=== PATIENT | male | born 1965 | race Caucasian/White ===

== ENCOUNTER 2020-07-19 09:33 | Outpatient (REF) | payer OTHER, SELFPAY ==
[2020-07-19 11:39] LABS: Hematocrit 43.8 % (42-52); Hemoglobin 13.8 g/dl (14.0-18.0); Mean Corpuscular HGB Conc 31.5 g/dl (31.0-36.0); Mean Corpuscular Hemoglobin 26.8 pg (27.0-33.0); Mean Corpuscular Volume 85.2 fL (80-98); Mean Platelet Volume 10.4 fL (9.4-12.4); Platelet Count 262 X10*3/uL (160-400); Red Blood Count 5.14 X10*6/uL (4.60-5.80); Red Cell Distribution Width 13.7 % (11.0-16.0); White Blood Count 5.8 X10*3/uL (4.8-10.8)
[2020-07-19 11:54] LABS: Glucose Urine UA NEG (NEG); Leukocyte Esterase Urine NEG (NEG); Nitrite Urine NEG (NEG); PH 5.5 (5.0-8.0); Specific Gravity - Urine >= 1.030 (1.005-1.025); Urine Blood NEG (NEG); Urine Ketones NEG (NEG); Urine Protein NEG (NEG-TRACE)
[2020-07-19 11:56] LABS: Appearance Urine CLOUDY; Color Urine YELLOW
[2020-07-19 12:05] LABS: Alanine Aminotransferase 18 U/L (0-40); Albumin Level 4.2 g/dL (3.5-5.0); Alkaline Phosphatase 79 U/L (39-117); Anion Gap 10 (12-20); Aspartate Amino Transferase 17 U/L (5-37); Bilirubin Total 0.5 mg/dL (0.0-1.0); Blood Urea Nitrogen 11 mg/dL (9-16); Calcium 8.6 mg/dL (8.4-10.2); Carbon Dioxide 27 mmol/L (22-29); Chloride 109 mmol/L (96-108); Cholesterol 173 mg/dL; Estimated Glomerular Filt Rate > 60; Glucose Fasting 99 mg/dL (60-99); HDL Cholesterol 44 mg/dL; LDL Cholesterol Calculated 121 mg/dl; Potassium 4.3 mmol/L (3.3-5.1); Sodium 142 mmol/L (135-145); Total Protein 6.7 g/dL (6.5-8.0); Triglycerides 42 mg/dL
[2020-07-19 14:57] LABS: Amorphous Sediment Urine 2+ /LPF; Calcium Oxalate Crystals Urine TRACE /LPF; RBC Urine 0 /HPF (0); WBC Urine 0 /HPF (0-4)
== END 2020-07-19 09:34 | disposition home or self-care (01) ==
LOC: HO.HMGCLDS 09:33
PROVIDERS: PCP Internal Medicine; Visit Provider Internal Medicine
DX: I10 Essential (primary) hypertension (principal)
CPT/HCPCS: 36415; 80053; 80061; 81001; 85027

== ENCOUNTER → 2020-10-15 09:10 | Outpatient (BNVA) | payer OTHER, SELFPAY | PROVIDERS: PCP Internal Medicine; Referring Provider Internal Medicine; Visit Provider Internal Medicine Gastroenterology ==

== ENCOUNTER 2022-08-17 11:36 | Outpatient (REF) | payer OTHER, SELFPAY ==
[2022-08-17 13:58] LABS: MANUAL DIFF FLAG NO
[2022-08-17 14:09] LABS: Basophils Percent Auto 0.4 % (0-2); Eosinophils Percent Auto 0.5 % (0-4); Hematocrit 45.8 % (42.0-52.0); Hemoglobin 14.7 g/dl (14.0-18.0); Imm Gran Abs Auto 0.03 X10*3/uL (0.00-0.03); Imm Gran Pct Auto 0.4 % (0.0-0.4); Lymphocytes Percent Auto 25.1 % (20-40); Mean Corpuscular HGB Conc 32.1 g/dl (31.0-36.0); Mean Corpuscular Hemoglobin 26.8 pg (27.0-33.0); Mean Corpuscular Volume 83.4 fL (80.0-98.0); Mean Platelet Volume 10.1 fL (9.4-12.4); Monocytes Absolute Auto 0.7 X10*3/uL (0.1-1.2); Monocytes Percent Auto 8.4 % (2-11); Neutrophils Absolute Auto 5.1 x10*3/uL (2.0-8.3); Neutrophils Percent Auto 65.2 % (45-73); Platelet Count 280 X10*3/uL (160-400); Red Blood Count 5.49 X10*6/uL (4.60-5.80); White Blood Count 7.8 X10*3/uL (4.8-10.8)
[2022-08-17 14:35] LABS: Alanine Aminotransferase 23 U/L (0-40); Albumin Level 4.3 g/dL (3.5-5.0); Alkaline Phosphatase 74 U/L (39-117); Anion Gap 12 (12-20); Aspartate Amino Transferase 20 U/L (5-37); Bilirubin Total 0.6 mg/dL (0.0-1.0); Blood Urea Nitrogen 11 mg/dL (9-16); Calcium 9.2 mg/dL (8.4-10.2); Carbon Dioxide 26 mmol/L (22-29); Chloride 110 mmol/L (96-108); Cholesterol 192 mg/dL; Estimated Glomerular Filt Rate > 60; Glucose Fasting 93 mg/dL (60-99); HDL Cholesterol 50 mg/dL; LDL Cholesterol Calculated 132 mg/dl; Potassium 4.2 mmol/L (3.3-5.1); Sodium 144 mmol/L (135-145); Total Protein 6.7 g/dL (6.5-8.0); Triglycerides 51 mg/dL
[2022-08-17 14:45] LABS: PSA,Total (Free>4and<10) 1.69 ng/mL (0.00-4.00)
== END 2022-08-17 11:37 | disposition home or self-care (01) ==
LOC: HO.HMGCLDS 11:36
PROVIDERS: PCP Internal Medicine; Visit Provider Internal Medicine
DX: Z00.00 Encounter for general adult medical examination without abnormal findings (principal); Z12.5 Encounter for screening for malignant neoplasm of prostate; I10 Essential (primary) hypertension
CPT/HCPCS: 36415; 80053; 80061; 84153; 85025

== ENCOUNTER 2023-08-21 09:17 | Outpatient (REF) | payer OTHER, SELFPAY ==
[2023-08-21 11:05] LABS: MANUAL DIFF FLAG NO
[2023-08-21 11:15] LABS: Basophils Percent Auto 0.7 % (0-2); Eosinophils Absolute Auto 0.2 X10*3/uL (0.0-0.4); Eosinophils Percent Auto 4.1 % (0-4); Hematocrit 44.6 % (42.0-52.0); Hemoglobin 14.1 g/dl (14.0-18.0); Imm Gran Abs Auto 0.01 X10*3/uL (0.00-0.03); Imm Gran Pct Auto 0.2 % (0.0-0.4); Lymphocytes Absolute Auto 2.2 X10*3/uL (1.2-4.9); Mean Corpuscular HGB Conc 31.6 g/dl (31.0-36.0); Mean Corpuscular Hemoglobin 25.7 pg (27.0-33.0); Mean Corpuscular Volume 81.2 fL (80.0-98.0); Mean Platelet Volume 9.9 fL (9.4-12.4); Monocytes Absolute Auto 0.6 X10*3/uL (0.1-1.2); Monocytes Percent Auto 10.4 % (2-11); Neutrophils Absolute Auto 2.5 x10*3/uL (2.0-8.3); Neutrophils Percent Auto 45.6 % (45-73); Platelet Count 287 X10*3/uL (160-400); Red Blood Count 5.49 X10*6/uL (4.60-5.80); Red Cell Distribution Width 14.7 % (11.0-16.0); White Blood Count 5.6 X10*3/uL (4.8-10.8)
[2023-08-21 11:50] LABS: PSA,Total (Free>4and<10) 1.59 ng/mL (0.00-4.00)
[2023-08-21 11:58] LABS: Alanine Aminotransferase 45 U/L (0-40); Albumin Level 4.2 g/dL (3.5-5.0); Alkaline Phosphatase 75 U/L (39-117); Anion Gap 12 (12-20); Aspartate Amino Transferase 29 U/L (5-37); Bilirubin Total 0.5 mg/dL (0.0-1.0); Blood Urea Nitrogen 11 mg/dL (9-16); Calcium 9.7 mg/dL (8.4-10.2); Carbon Dioxide 26 mmol/L (22-29); Chloride 108 mmol/L (96-108); Cholesterol 184 mg/dL (<200); Estimated Glomerular Filt Rate > 60; Glucose Fasting 97 mg/dL (60-99); HDL Cholesterol 47 mg/dL (>40); LDL Cholesterol Calculated 126 mg/dL (<100); Potassium 4.9 mmol/L (3.3-5.1); Sodium 141 mmol/L (135-145); Total Protein 7.2 g/dL (6.5-8.0); Triglycerides 58 mg/dL (<150)
== END 2023-08-21 09:18 | disposition home or self-care (01) ==
LOC: HO.HMGCLDS 09:17
PROVIDERS: PCP Internal Medicine; Visit Provider Internal Medicine
DX: Z00.00 Encounter for general adult medical examination without abnormal findings (principal); I10 Essential (primary) hypertension; Z12.5 Encounter for screening for malignant neoplasm of prostate
CPT/HCPCS: 36415; 80053; 80061; 84153; 85025

== ENCOUNTER 2023-08-31 12:52 | Outpatient (AMB) | payer OTHER, SELFPAY ==
--- NOTE | 2023-08-31 13:22 | A.OFFPC_ITS ---
Vital Signs 08/31/23 13:23 Height 5 ft 5 in Weight 163 lb BMI 27.1 BP 118/88 Blood Pressure Location Lt brachial Position Sitting Pulse 74 Pulse Source Pulse Oximeter Pulse Oximetry (%) 97 Oxygen Delivery Method Room Air Intake Visit Reasons: PE Intake Note: Pt is here today for PE. Pt states that he needs a refill on hi BP med. Allergies No Known Allergies Allergy (Verified 08/31/23 13:36) Medication List - Last Reconciled 08/31/23 by Sunni Ramirez MD lisinopril 20 mg PO DAILY Tobacco use date assessed: 08/31/23 Dental Screening Dental Screen Date: 08/31/23 Did you have a dental visit in the last 12 months?: No Did you have a dental problem in the last 6 months where you did not have access to dental care?: No Was dental information given to patient?: Patient declined HPI PE HPI Details Patient presents for physical [facility] Medical History Annual physical exam HTN (hypertension) Amputation of right hand Surgical History No pertinent past surgical history Family History Father No problems noted. Mother Lymphoma Social History Housing: House Alcohol intake: never Patient Tobacco Use Status: Never used Tobacco e-Cigarette/Vaping Use: Never Used service: No Current occupational status: employed Cognitive needs: No Hearing needs: No Vision needs: No Questionnaire PHQ-9 Over the last 2 weeks, how often have you been bothered by any of the following problems? 1. Little interest or pleasure in doing things: not at all 2. Feeling down, depressed, or hopeless: not at all 3. Trouble falling or staying asleep, or sleeping too much: not at all 4. Feeling tired or having little energy: not at all 5. Poor appetite or overeating: not at all 6. Feeling bad about yourself - or that you are a failure or have let yourself or your family down: not at all 7. Trouble concentrating on things, such as reading the newspaper or watching television: not at all 8. Moving or speaking so slowly that other people could have noticed. Or the opposite - being so fidgety or restless that you have been moving around a lot more than usual: not at all 9. Thoughts that you would be better off or of hurting yourself in some way: not at all Total score: 0 Depression Screening Interpretation: Negative Depression Screening Done: Yes Source: Developed by Drs. Pelon Guevara, Jewels Garcia, Leonidas Ashford and colleagues, with an educational michelet from [employer] Thrive Questionnaire Date Thrive assessed: 08/31/23 I am a: Patient What is your living situation today?: I have a steady place to live Within the past 12 months, did the food you bought not last and you didn't have the money to get more?: Never true Within the past 12 months, did you worry whether your food would run out before you got money to buy more?: Never true Do you have trouble paying for medicines?: No Do you have trouble getting transportation to medical appointments?: No Do you have trouble paying your heating and electricity bill?: No Do you have trouble taking care of your child, family member or friend?: No Do you have trouble with day-to-day activities such as bathing, preparing meals, shopping, managing finances, etc.?: No Are you currently unemployed and looking for a job?: No Are you interested in more education?: No Please select the resources that you would like help with: None THRIVE Score: 0 AUDIT C Alcohol Use Questionnaire (AUDIT-C) 1. How often do you have a drink containing alcohol?: Never 3. How often do you have six or more drinks on one occasion?: Never Total Score: 0 GEMA-7 AMB Questionnaire GEMA-7 Date GEMA - 7 assessed: 08/31/23 Feeling nervous, anxious, or on edge: 0 = Not at all Not being able to stop or control worryin = Not at all Worrying too much about different things: 0 = Not at all Trouble relaxin = Not at all Being so restless that it is hard to sit still: 0 = Not at all Becoming easily annoyed or irritable: 0 = Not at all Feeling afraid as if something awful might happen: 0 = Not at all Total GEMA-7 score (0-4 normal; 5-9 mild; 10-14 moderate; 15-21 severe): 0 Source: Developed by Drs. Pelon Guevara, Jewels Garcia, Leonidas Ashford and colleagues, with an educational michelet from [employer] Review of Systems Const All systems reviewed & are unremarkable except as noted in HPI and below Eyes Reports no additional complaints ENT Reports no additional complaints Card Reports no additional complaints Resp Reports no additional complaints GI Reports no additional complaints Reports no additional complaints Physical exam (Primary Care) Vital Signs: Last Vital Signs Pulse 74 08/31/23 13:23 BP 118/88 08/31/23 13:23 Pulse Ox 97 08/31/23 13:23 Oxygen Delivery Method Room Air 08/31/23 13:23 BMI result Body Mass Index 27.1 Tobacco/Smoking Status: Tobacco use Status Tobacco use date assessed 08/31/23 08/31/23 13:40 Patient Tobacco Use Status Never used Tobacco 08/31/23 13:40 e-Cigarette/Vaping Use Never Used 08/31/23 13:23 PHQ-9: PHQ-9 Score PHQ-9: Total score 0 08/31/23 13:40 Depression Screening Interpretation: Negative Thrive Assessment: Date of Thrive Assessment Date Thrive assessed 08/31/23 08/31/23 13:40 Const General: no acute distress HENMT Ears: hearing grossly normal bilaterally Mouth: Normal oral and palatal mucosa present Throat: Yes posterior oropharynx normal Neck Neck: Yes no lymphadenopathy and Yes supple Resp Effort & Inspection: normal respiratory effort Auscultation: clear to auscultation bilaterally Cardio Rhythm: regular rhythm Heart sounds: S1 normal heart sound present and S2 normal heart sound present GI Inspection: Yes normal to inspection Palpation (GI): Soft to palpation Percussion: Yes normal to percussion Auscultation: normal bowel sounds Assessment and Plan Assessment & Plan (1) Annual physical exam: Code(s): Z00.00 - Encounter for general adult medical examination without abnormal findings Plan: Well-balanced diet regular physical activity discussed with the patient. He declined colonoscopy Cologuard will be sent (2) HTN (hypertension): Code(s): I10 - Essential (primary) hypertension Plan: Continue lisinopril Orders: Referrals Cologuard Test Z12.11 - Encounter for screening for malignant neoplasm of colon, Z12.12 - Encounter for screening for malignant neoplasm of rectum Coding Level of Care Code Est Pt Prev Care 40-64y(32977) Diagnoses Annual physical exam Z00.00 HTN (hypertension) I10
[2023-08-31 13:23] VITALS: BP 118/88; PULSE 74; O2SAT 97; BMI 27.1
== END 2023-08-31 14:51 | disposition home or self-care (01) ==
PROVIDERS: Visit Provider Internal Medicine
DX: Z00.00 Encounter for general adult medical examination without abnormal findings (principal); I10 Essential (primary) hypertension
CPT/HCPCS: 99396

== ENCOUNTER 2024-07-26 06:02 | Outpatient (REF) | payer OTHER, SELFPAY ==
--- OUTSIDE RECORDS SUMMARY | 2024-07-26 06:04 | XMS_ITS | Clinical Summary ---
Author Organization [facility] Address [address] [place] [address] Care Team Providers Care Supervisor Assembly Department Name Role Phone Unknown Primary Care Provider [phone] Social History Tobacco Use Types Packs/Day Years Used Date Smoking Tobacco: Never Assessed Sex and Gender Information Value Date Recorded Sex Assigned at Not on file Gender Identity Not on file Sexual Orientation Not on file Plan of Treatment Health Maintenance Due Date Last Done Comments Hepatitis C Virus Screening 1967 HIV Screening 1980 DTaP/Tdap/Td Vaccines (1 - Tdap) 1986 Hepatitis B Vaccines (1 of 3 - 19+ 3-dose series) 1986 Colonoscopy 2012 Pneumococcal Vaccines 50+ (1 of 1 - PCV) 2017 Zoster (Shingles) Vaccine (1 of 2) 2017 Influenza Vaccine 11/18/2023 COVID-19 Vaccine ( - 2023-2 5 season) 2023 Pneumococcal Vaccine: Pediat donnie (0-5 Years) and At-Risk Patients (6 to 49 Years) Aged Out No longer eligible b ased on patient's age to complete this topic Care Teams Supervisor Assembly Department Relationship Specialty Start Date End Date Unknown Unknow Provider Address PCP - General 06/05/17
--- OUTSIDE RECORDS SUMMARY | 2024-07-26 06:04 | XMS_ITS | Clinical Summary ---
Author Organization [facility] Address [address] [place] [address] Care Team Providers Care Recoater Name Role Phone Sunni Ramirez Primary Care Provider [phone] Allergies No known active allergies Medications senna (SENOKOT) 8.6 mg tablet Take 1 tablet (8.6 mg total) by mouth 2 times a day for 14 days. 28 tablet 8 Active oxyCODONE IR (ROXICODONE) 5 mg tablet Take 1-2 tablets (5-10 mg total) by mouth every 3 hours as needed for moderate pain (pain score 4-6). (Partial fill upon patient request.) 50 tablet 8 Active Additional Information Patient not taking.Reported on 10/26/2022 lisinopriL (PRINIVIL,ZESTR IL) 20 mg tablet 1 Active amLODIPine-lianne zepriL (LOTREL 5-20) 5-20 mg per capsule Take 1 capsule by mouth daily. 1 Active Active Problems Problem Noted Date Diagnosed Date Amputation of right arm below elbow, subsequent encounter 06/10/2017 Hand crush injury, right, initial encounter 05/20 Hand crush injury 06/01/2017 Pain 06/01/2017 Crushing injury of right hand Family History Relation Name Status Comments Father Alive Mother Alive Social History Tobacco Use Types Packs/Day Years Used Date Smoking Tobacco: Never Smokeless Tobacco: Never Tobacco Cessation:Counseling Given: Not Answered Alcohol Use Standard Drinks/Week Comments No 0 (1 standard drink = 0.6 oz pur e alcohol) Sex and Gender Information Value Date Recorded Sex Assigned at Male 09/09/2020 10:34 AM EDT Legal Sex Male 1:45 PM EST Gender Identity Male 09/09/2020 10:34 AM EDT Sexual Orientation Straight 09/09/2020 10 :34 AM EDT Last Filed Vital Signs Vital Sign Reading Time Taken Comments Blood Pressure 126/86 10/26/2022 3:21 PM EDT Pulse 84 10/26/2022 3:21 PM EDT Temperature 36.8 ??C (98.2 ??F) 04/27/2022 2:34 PM ES T Respiratory Rate 16 06/02/2017 4:06 PM EST Oxygen Saturation 97% 04/27/2022 2:34 PM EST Inhaled Oxygen Concentration - - Weight 70.9 kg (156 lb 3.2 oz) 10/26/2022 3:21 P M EDT Height 167.6 cm (5' 6 ) 10/26/2022 3:21 PM EDT Body Mass Index 25.21 10/26/2022 3:21 PM EDT Plan of Treatment Upcoming Encounters Date Type Department Care Team (Late st Contact Info) Description 10/30/2024 4:00 PM EDT Follow-Up [facility] [address] [place] [address] Chava Garcia MD [address] [place] [address] Health Maintenance Due Date Last Done Comments Cologuard 1967 Colon Cancer Screening 1967 Colonoscopy 1967 FOBT / Fit Test 1967 HIV Screening 1967 Sigmoidoscopy 1967 Hepatitis B Vaccines (1 of 3 - 19+ 3-dose series) 04/1985 DTaP,Tdap,and Td Vaccines (1 - Tdap) 1989 Pneumococcal Vaccine: 50+ Years (1 of 1 - PCV) 017 Zoster Vaccines (1 of 2) 2017 Alcohol/Substance Use Screening 04/19/2024 Influenza Vaccine (Season Ended) 2024 RSV Vaccine (60+ years old a nd patients) (1 - 1-dose 75+ series) 2042 Insurance [facility] [employer] Care Teams Recoater Relationship Specialty Start Date End Date Sunni Ramirez [address] [place], [place] [phone] PCP - General Internal Medicine 08/05/23
--- OUTSIDE RECORDS SUMMARY | 2024-07-26 06:04 | XMS_ITS | Referral Summary ---
Author Organization [facility] Address [address] [place] [address] Care Team Providers Care Consumer Analyst Name Role Phone Sunni Ramirez Primary Care Provider [phone] Allergies No known active allergies Medications senna [...] Pain 06/01/2017 Crushing injury of right hand Social History Tobacco Use Types Packs/Day Years [...] Info) Description 10/30/2024 4:00 PM EDT Follow-Up [facility] [address] [place] [address] Chava Garcia MD [address] [place] [address] Insurance [employer] Care Teams Consumer Analyst Relationship Specialty Start Date End Date Sunni Ramirez [address] [place] [address] PCP - General Internal Medicine 08/05/23
[2024-07-26 10:29] LABS: MANUAL DIFF FLAG NO
[2024-07-26 11:00] LABS: Appearance Urine Turbid; Color Urine Yellow; Glucose Urine UA Negative (Negative); Leukocyte Esterase Urine Negative (Negative); Nitrite Urine Negative (Negative); PH 5.5 (5.0-9.0); Specific Gravity - Urine 1.025 (1.005-1.025); Urine Blood Negative (Negative); Urine Ketones Trace mg/dL (Negative); Urine Protein Negative (Neg-Trace)
[2024-07-26 11:01] LABS: Basophils Percent Auto 0.6 % (0-2); Eosinophils Absolute Auto 0.2 X10*3/uL (0.0-0.4); Eosinophils Percent Auto 2.1 % (0-4); Hematocrit 43.5 % (42.0-52.0); Hemoglobin 14.2 g/dl (14.0-18.0); Imm Gran Abs Auto 0.03 X10*3/uL (0.00-0.03); Imm Gran Pct Auto 0.4 % (0.0-0.4); Lymphocytes Absolute Auto 2.5 X10*3/uL (1.2-4.9); Lymphocytes Percent Auto 35.3 % (20-40); Mean Corpuscular HGB Conc 32.6 g/dl (31.0-36.0); Mean Corpuscular Hemoglobin 26.6 pg (27.0-33.0); Mean Corpuscular Volume 81.6 fL (80.0-98.0); Mean Platelet Volume 10.3 fL (9.4-12.4); Monocytes Absolute Auto 0.7 X10*3/uL (0.1-1.2); Neutrophils Absolute Auto 3.7 x10*3/uL (2.0-8.3); Neutrophils Percent Auto 51.6 % (45-73); Platelet Count 287 X10*3/uL (160-400); Red Blood Count 5.33 X10*6/uL (4.60-5.80); Red Cell Distribution Width 14.5 % (11.0-16.0); White Blood Count 7.1 X10*3/uL (4.8-10.8)
[2024-07-26 11:12] LABS: Bacteria Urine None Seen (None Seen); RBC Urine 0-2 /HPF (0-2); Squamous Epithelial Cell Urine 0-2 /HPF (0-2); WBC Urine 0-5 /HPF (0-5)
[2024-07-26 11:34] LABS: PSA,Total (Free>4and<10) 1.84 ng/mL (0.00-4.00)
[2024-07-26 11:40] LABS: Alanine Aminotransferase 41 U/L (0-40); Albumin Level 4.2 g/dL (3.5-5.0); Alkaline Phosphatase 69 U/L (39-117); Anion Gap 7 (12-20); Aspartate Amino Transferase 32 U/L (5-37); Bilirubin Total 0.6 mg/dL (0.0-1.0); Blood Urea Nitrogen 11 mg/dL (9-16); Calcium 9.2 mg/dL (8.4-10.2); Carbon Dioxide 26 mmol/L (22-29); Chloride 110 mmol/L (96-108); Cholesterol 183 mg/dL (<200); Estimated Glomerular Filt Rate > 60; Glucose Fasting 97 mg/dL (60-99); HDL Cholesterol 55 mg/dL (>40); LDL Cholesterol Calculated 113 mg/dL (<100); Potassium 4.4 mmol/L (3.3-5.1); Sodium 139 mmol/L (135-145); Total Protein 7.1 g/dL (6.5-8.0); Triglycerides 77 mg/dL (<150)
== END 2024-07-26 06:03 | disposition home or self-care (01) ==
LOC: HO.HMGCLDS 06:02
PROVIDERS: PCP Internal Medicine; Visit Provider Internal Medicine
DX: Z00.00 Encounter for general adult medical examination without abnormal findings (principal); I10 Essential (primary) hypertension; Z12.5 Encounter for screening for malignant neoplasm of prostate
CPT/HCPCS: 36415; 80053; 80061; 81001; 84153; 85025

== ENCOUNTER 2024-07-31 12:23 | Outpatient (AMB) | payer OTHER, SELFPAY ==
[2024-07-31 12:39] VITALS: BP 136/86; PULSE 79; RESP 18; TEMP 36.6; O2SAT 97; BMI 27.3
--- NOTE | 2024-07-31 12:39 | A.OFFPC_ITS ---
Vital Signs 07/31/24 12:39 Height 5 ft 5 in Weight 164 lb BMI 27.3 BP 136/86 Blood Pressure Location Lt brachial Position Sitting Respiration 18 Pulse 79 Pulse Source Pulse Oximeter Temp 97.8 F Temp Source Oral Pulse Oximetry (%) 97 Oxygen Delivery Method Room Air Intake Visit Reasons: 6 month f/u Intake Note: Pt is here today for 6 months follow up visit. Allergies No Known Allergies Allergy (Verified 07/31/24 12:39) Medication List - Last Reconciled 07/31/24 by Sunni Ramirez MD amlodipine-benazepril 5-20 mg 1 cap PO DAILY Tobacco use date assessed: 07/31/24 Dental Screening Dental Screen Date: 07/31/24 Did you have a dental visit in the last 12 months?: No Did you have a dental problem in the last 6 months where you did not have access to dental care?: No Was dental information given to patient?: Patient declined HPI 6 month f/u HPI Details Pt presents for f/u HTN. Pt reports elevated BP despite taking Lisinopril. [facility] Medical History Annual physical exam HTN (hypertension) Amputation of right hand Surgical History No pertinent past surgical history Family History Father No problems noted. Mother Lymphoma Social History Housing: House Alcohol intake: never Patient Tobacco Use Status: Never used Tobacco e-Cigarette/Vaping Use: Never Used service: No Current occupational status: employed Cognitive needs: No Hearing needs: No Vision needs: No Questionnaire PHQ-9 Over the last 2 weeks, how often have you been bothered by any of the following problems? 1. Little interest or pleasure in doing things: not at all 2. Feeling down, depressed, or hopeless: not at all 3. Trouble falling or staying asleep, or sleeping too much: not at all 4. Feeling tired or having little energy: not at all 5. Poor appetite or overeating: not at all 6. Feeling bad about yourself - or that you are a failure or have let yourself or your family down: not at all 7. Trouble concentrating on things, such as reading the newspaper or watching television: not at all 8. Moving or speaking so slowly that other people could have noticed. Or the o pposite - being so fidgety or restless that you have been moving around a lot more than usual: not at all 9. Thoughts that you would be better off or of hurting yourself in some way: not at all Total score: 0 Depression Screening Interpretation: Negative Depression Screening Done: Yes Source: Developed by Drs. Pelon Guevara, Jewels Garcia, Leonidas Ashford and colleagues, with an educational michelet from [employer]. Thrive Questionnaire Date Thrive assessed: 07/31/24 I am a: Patient What is your living situation today?: I have a steady place to live Within the past 12 months, did the food you bought not last and you didn't have the money to get more?: Never true Within the past 12 months, did you worry whether your food would run out before you got money to buy more?: Never true Do you have trouble paying for medicines?: No Do you have trouble getting transportation to medical appointments?: No Do you have trouble paying your heating and electricity bill?: No Do you have trouble taking care of your child, family member or friend?: No Do you have trouble with day-to-day activities such as bathing, preparing meals, shopping, managing finances, etc.?: No Are you currently unemployed and looking for a job?: No Are you interested in more education?: No THRIVE Score: 0 AUDIT C Alcohol Use Questionnaire (AUDIT-C) 1. How often do you have a drink containing alcohol?: Never 3. How often do you have six or more drinks on one occasion?: Never Total Score: 0 GEMA-7 AMB Questionnaire GEMA-7 Date GEMA - 7 assessed: 07/31/24 Feeling nervous, anxious, or on edge: 0 = Not at all Not being able to stop or control worryin = Not at all Worrying too much about different things: 0 = Not at all Trouble relaxin = Not at all Being so restless that it is hard to sit still: 0 = Not at all Becoming easily annoyed or irritable: 0 = Not at all Feeling afraid as if something awful might happen: 0 = Not at all Total GEMA-7 score (0-4 normal; 5-9 mild; 10-14 moderate; 15-21 severe): 0 Source: Developed by Drs. Pelon Guevara, Jewels Garcia, Leonidas Ashford and colleagues, with an educational michelet from [employer]. GEMA-7 Assessment Billing GEMA-7 Assessment Tool: GEMA-7 Assessment 50927 Review of Systems Const All systems reviewed & are unremarkable except as noted in HPI and below Eyes Reports no additional complaints ENT Reports no additional complaints Card Reports no additional complaints Resp Reports no additional complaints GI Reports no additional complaints Reports no additional complaints Physical exam (Primary Care) Vital Signs: Last Vital Signs Temp 97.8 F 07/31/24 12:39 Pulse 79 07/31/24 12:39 Resp 18 07/31/24 12:39 BP 136/86 07/31/24 12:39 Pulse Ox 97 07/31/24 12:39 Oxygen Delivery Method Room Air 07/31/24 12:39 BMI result Body Mass Index 27.3 Tobacco/Smoking Status: Tobacco use Status Tobacco use date assessed 07/31/24 07/31/24 12:40 Patient Tobacco Use Status Never used Tobacco 07/31/24 12:40 e-Cigarette/Vaping Use Never Used 07/31/24 12:40 PHQ-9: PHQ-9 Score PHQ-9: Total score 0 07/31/24 12:45 Depression Screening Interpretation: Negative Thrive Assessment: Date of Thrive Assessment Date Thrive assessed 07/31/24 07/31/24 12:45 Const General: no acute distress HENMT Face and sinus: Yes normal facial exam Resp Effort & Inspection: normal respiratory effort Auscultation: clear to auscultation bilaterally Cardio Rhythm: regular rhythm Heart sounds: S1 normal heart sound present and S2 normal heart sound present GI Inspection: Yes normal to inspection Palpation (GI): Soft to palpation Coding Level of Care Code Est Pt Level 3 (38779) Diagnoses HTN (hypertension) I10 Additional Codes GEMA-7 Assessment Billing - GEMA-7 Assessment Tool: GEMA-7 Assessment 69070 ([id number]) Assessment & Plan Assessment & Plan (1) HTN (hypertension): Code(s): I10 - Essential (primary) hypertension Category: Medical Plan: Change lisinopril to amlodipine with benazepril 5/20, low-sodium diet regular physical activity discussed with the patient follow-up in 1 month Medications: New amlodipine-benazepril 5-20 mg 1 cap PO DAILY 90 caps 0RF Discontinued lisinopril Discontinued Reason: Doctor's Order 20 mg PO DAILY 90 tabs 3RF
--- OUTSIDE RECORDS SUMMARY | 2024-07-31 14:19 | XMS_ITS | Referral Summary ---
Author Organization [facility] Address [address] [place] [address] Care Team Providers Care Market Survey Representative Name Role Phone Sunni Ramirez Primary Care Provider [phone] Allergies No known active allergies Medications senna [...] Info) Description 10/30/2024 4:00 PM EDT Follow-Up [facility] [address] [place] [address] Chava Gracia MD [address] [place] [address] Insurance [employer] Care Teams Market Survey Representative Relationship Specialty Start Date End Date Sunni Ramirez [address] [place] [address] PCP - General Internal Medicine 08/05/23
--- OUTSIDE RECORDS SUMMARY | 2024-07-31 14:19 | XMS_ITS | Clinical Summary ---
Author Organization [facility] Address [address] [place] [address] Care Team Providers Care Kier Operator Name Role Phone Sunni Ramirez Primary Care Provider [phone] Allergies No known active allergies Medications senna [...] Info) Description 10/30/2024 4:00 PM EDT Follow-Up [facility] [address] [place] [address] Chava Garcia MD [address] [place] [address] Health Maintenance Due Date Last Done Comments [...] (1 - 1-dose 75+ series) 2042 Insurance [facility] [employer] Care Teams Kier Operator Relationship Specialty Start Date End Date Sunni Ramirez [address] [place], [place] [phone] PCP - General Internal Medicine 08/05/23
--- OUTSIDE RECORDS SUMMARY | 2024-07-31 14:19 | XMS_ITS | Clinical Summary ---
Author Organization [facility] Address [address] [place] [address] Care Team Providers Care Razor Sharpener Name Role Phone Unknown Primary Care Provider [...] age to complete this topic Care Teams Razor Sharpener Relationship Specialty Start Date End Date Unknown Unknow Provider Address PCP - General 06/05/17
== END 2024-07-31 13:05 | disposition home or self-care (01) ==
LOC: HO.HMCC 12:23
PROVIDERS: PCP Internal Medicine; Visit Provider Internal Medicine
DX: I10 Essential (primary) hypertension (principal)

== ENCOUNTER → 2024-07-31 12:23 | Outpatient (BNVA) | payer OTHER, SELFPAY | PROVIDERS: PCP Internal Medicine; Visit Provider Internal Medicine | DX: I10 Essential (primary) hypertension (principal) | CPT/HCPCS: 96127 ==

== ENCOUNTER 2024-09-13 10:52 | Outpatient (AMB) | payer OTHER, SELFPAY ==
[2024-09-13 11:14] VITALS: BP 114/76; PULSE 78; RESP 18; TEMP 36.7; O2SAT 98; BMI 26.8
--- NOTE | 2024-09-13 11:14 | MHC.PC.OV ---
Vital Signs 09/13/24 11:14 Height 5 ft 5 in Weight 161 lb BMI 26.8 BP 114/76 Blood Pressure Location Lt brachial Position Sitting Respiration 18 Pulse 78 Pulse Source Pulse Oximeter Temp 98.1 F Temp Source Oral Pulse Oximetry (%) 98 Oxygen Delivery Method Room Air Intake Visit Reasons: 1m follow up Intake Note: Pt is here today for 1 month follow up visit. Allergies No Known Allergies Allergy (Verified 09/13/24 11:19) Medication List - Last Reconciled 09/13/24 by Sunni Ramirez MD amlodipine-benazepril 5-20 mg 1 cap PO DAILY Tobacco use date assessed: 09/13/24 Dental Screening Dental Screen Date: 07/31/24 HPI HPI Comments History of Present Illness Details Presents for a physical. Hypertension is better controlled on current medications. [facility] Medical History (Updated 09/13/24 @ 11:50 by Sunni Ramirez MD) Colon cancer screening Annual physical exam HTN (hypertension) Amputation of right hand Surgical History No pertinent past surgical history Family History Father No problems noted. Mother Lymphoma Social History Housing: House Alcohol intake: never Patient Tobacco Use Status: Never used Tobacco e-Cigarette/Vaping Use: Never Used service: No Current occupational status: employed Cognitive needs: No Hearing needs: No Vision needs: No Questionnaire Thrive Questionnaire Date Thrive assessed: 07/28/24 I am a: Patient What is your living situation today?: I have a steady place to live Within the past 12 months, did the food you bought not last and you didn't have the money to get more?: Never true Within the past 12 months, did you worry whether your food would run out before you got money to buy more?: Never true Do you have trouble paying for medicines?: No Do you have trouble getting transportation to medical appointments?: No Do you have trouble paying your heating and electricity bill?: No Do you have trouble taking care of your child, family member or friend?: No Do you have trouble with day-to-day activities such as bathing, preparing meals, shopping, managing finances, etc.?: No Are you currently unemployed and looking for a job?: No Are you interested in more education?: No THRIVE Score: 0 GEMA-7 AMB Questionnaire GEMA-7 Date GEMA - 7 assessed: 07/31/24 Source: Developed by Drs. Pelon Guevara, Jewels Garcia, Leonidas Ashford and colleagues, with an educational michelet from [employer]. Review of Systems Const All systems reviewed & are unremarkable except as noted in HPI and below Eyes Reports no additional complaints ENT Reports no additional complaints Card Reports no additional complaints Resp Reports no additional complaints GI Reports no additional complaints Reports no additional complaints Physical exam (Primary Care) Vital Signs: Last Vital Signs Temp 98.1 F 09/13/24 11:14 Pulse 78 09/13/24 11:14 Resp 18 09/13/24 11:14 BP 114/76 09/13/24 11:14 Pulse Ox 98 09/13/24 11:14 Oxygen Delivery Method Room Air 09/13/24 11:14 BMI result Body Mass Index 26.8 Tobacco/Smoking Status: Tobacco use Status Tobacco use date assessed 09/13/24 09/13/24 11:16 Patient Tobacco Use Status Never used Tobacco 09/13/24 11:16 e-Cigarette/Vaping Use Never Used 09/13/24 11:16 Thrive Assessment: Date of Thrive Assessment Date Thrive assessed 07/28/24 09/13/24 11:16 Const General: no acute distress HENMT Head: Yes normal to inspection Ears: hearing grossly normal bilaterally General nose exam: Normal external nose present Face and sinus: Yes normal facial exam Throat: Yes posterior oropharynx normal Eyes General: appearance normal, both eyes and all related structures Neck Neck: Yes no lymphadenopathy and Yes supple Resp Effort & Inspection: normal respiratory effort Auscultation: clear to auscultation bilaterally Cardio Rhythm: regular rhythm Heart sounds: S1 normal heart sound present and S2 normal heart sound present GI Inspection: Yes normal to inspection Palpation (GI): Soft to palpation Percussion: Yes normal to percussion Auscultation: normal bowel sounds Coding Level of Care Code Est Pt Prev Care 40-64y(54226) Diagnoses HTN (hypertension) I10 Colon cancer screening Z12.11 Annual physical exam Z00.00 Assessment & Plan Assessment & Plan (1) HTN (hypertension): Code(s): I10 - Essential (primary) hypertension Category: Medical Plan: Continue current medications (2) Colon cancer screening: Comment: Negative Cologuard August 2023 Code(s): Z12.11 - Encounter for screening for malignant neoplasm of colon Category: Medical Plan: Patient declined colonoscopy (3) Annual physical exam: Code(s): Z00.00 - Encounter for general adult medical examination without abnormal findings Category: Medical Plan: Well-balanced diet regular physical activity discussed with the patient, he will return in 6 months with a fasting labs before Orders: Orders Lipid Panel 6 Months I10 - Essential (primary) hypertension Comprehensive [place]. Panel Fast 6 Months I10 - Essential (primary) hypertension Medications: New ciclopirox 8% (Ciclodan) 1 appl topical BEDTIME 4 weeks 6.6 mL 1RF Refilled amlodipine-benazepril 5-20 mg 1 cap PO DAILY 90 caps 3RF
--- OUTSIDE RECORDS SUMMARY | 2024-09-13 11:57 | XMS_ITS | Clinical Summary ---
Author Organization Formerly [facility] Address [address] [place] [address] Care Team Providers Care Cement Handler Name Role Phone Unknown Primary Care Provider [phone] Social History Tobacco Use Types Packs/Day Years Used Date Smoking Tobacco: Never Assessed Sex and Gender Information Value Date Recorded Sex Assigned at Not on file Legal Sex Male 12:44 AM EST Gender Identity Not on file Sexual Orientation Not on file Plan of Treatment Health Maintenance Due Date Last Done Comments Hepatitis C Virus Screening 1967 HIV Screening 1980 DTaP/Tdap/Td Vaccines (1 - Tdap) 1986 Hepatitis B Vaccines (1 of 3 - 19+ 3-dose series) 04/1985 Colonoscopy 2012 Pneumococcal Vaccines 50+ (1 of 1 - PCV) 2017 Zoster (Shingles) Vaccine (1 of 2) 2017 COVID-19 Vaccine (1 - 2023- season) 2023 Influenza Vaccine 11/17/2024 Insurance [id number] [facility] [place] [address] [facility] Care Teams Cement Handler Relationship Specialty Start Date End Date Unknown Unknow Provider Address PCP - General 06/05/17
== END 2024-09-13 11:42 | disposition home or self-care (01) ==
LOC: HO.HMCC 10:53
PROVIDERS: PCP Internal Medicine; Visit Provider Internal Medicine
DX: I10 Essential (primary) hypertension (principal); Z12.11 Encounter for screening for malignant neoplasm of colon; Z00.00 Encounter for general adult medical examination without abnormal findings

== ENCOUNTER → 2024-09-13 10:52 | Outpatient (BNVA) | payer OTHER, SELFPAY | PROVIDERS: PCP Internal Medicine; Visit Provider Internal Medicine ==

== ENCOUNTER 2025-03-30 07:17 | Outpatient (REF) | payer OTHER, SELFPAY ==
--- OUTSIDE RECORDS SUMMARY | 2025-03-30 07:20 | XMS_ITS | Clinical Summary ---
Author Organization [facility] Address [address] [facility] [address] [place] [phone] Phone Care Team Providers Care Nitro Worker Name Role Phone Ananth Lopez MD Primary Care Provider Social History Tobacco Use Types Packs/Day Years Used Date Smoking Tobacco: Never Assessed Education Answer Date Recorded Are you interested in more education? Not on jeana e 08/14/2022 Are you concerned about learning? Not on file 08/14/2022 No 08/14/2022 No 08/14/2022 Digital Access Answer Date Recorded No 09/12/2022 No 09/12/2022 No 09/12/2022 Reliable internet access at home? Not on file 09/12/2022 Device with a working camera? Not on file Sex and Gender Information Value Date Recorded Sex Assigned at Not on file Legal Sex Male 3:51 PM EDT Gender Identity Not on file Sexual Orientation Not on file Plan of Treatment Health Maintenance Due Date Last Done Comments Adult Td,Tdap Booster 1967 LIPID PANEL 1967 DEPRESSION SCREENING 1979 SMOKING Hx and SMOKELESS TOB ACCO SCREENING 1980 HEPATITIS C SCREENING 1985 HIV ONE-TIME SCREENING (18-6 5 YEARS) 1985 COLOGUARD 2012 COLONOSCOPY 2012 COLORECTAL CANCER SCREENING 2012 FIT TEST 2012 FOBT 2012 SIGMOIDOSCOPY 2012 VIRTUAL COLONOSCOPY 2012 PNEUMOCOCCAL VACCINES (50+ y ears) (1 of 1 - PCV) 2017 ZOSTER VACCINES (1 of 2) 2017 INFLUENZA VACCINE (#1) 2024 COVID-19 VACCINE (1 - 2024-2 6 season) 2024 RSV VACCINE (1 - 1-dose 75+ series) 2042 HEPATITIS A VACCINES Aged Out No long er eligible based on patient's age to complete this topic HIB VACCINES Aged Out No longer eligi ble based on patient's age to complete this topic MENINGOCOCCAL VACCINES (ACWY) Aged Out No longer eligible based on patient's age to complete this topic MENINGOCOCCAL VACCINES (B) Aged Out N o longer eligible based on patient's age to complete this topic Medical Devices Not on file Insurance [employer] Care Teams Nitro Worker Relationship Specialty Start Date End Date Ananth Lopez MD [address] [place] [phone] [email or web address] PCP - General Internal Medicine 12/27/17 Additional Source Comments The information contained in this document represents components of the legal health record. It is not the complete legal health record.[facility]
--- OUTSIDE RECORDS SUMMARY | 2025-03-30 07:20 | XMS_ITS | Encounter Summary ---
Author Organization [facility] Address [address] [address] Phone Care Team Providers Care Ceramic Tile Installation Helper Name Role Phone Unknown, Unknown Primary Care Provider Ananth Davenport MD Primary Care Provider Reason for Referral * Occupational Therapy (Routine) - Closed Specialty Diagnoses / Procedures Referred By Tj alberts Referred To Contact Occupational Therapy Diagnoses Encounter for rehabilitation System, Provider Not In, PhD [address] [place] [address] Phone: tel: Referral ID Status Reason Start Date Expiration Date Visits Re quested Visits Authorized [id number] Closed 12/23/2017 04/18/2018 17 17 Encounter Details Date Type Department Care Team (Latest Contact Info) Description 12/23/2017 Transcribe Orders [facility] [address] [place] [address] Chava Garcia MD [address] [place] [address] Encounter for rehabilitation (Primary Dx) Social History Tobacco Use Types Packs/Day Years Used Date Smoking Tobacco: Never Assessed Sex and Gender Information Value Date Recorded Sex Assigned at Not on file Legal Sex Male 3:51 PM EDT Gender Identity Not on file Sexual Orientation Not on file documented as of this encounter Plan of Treatment Scheduled Referrals Name Type Priority Associated Diagnoses Orde r Schedule Ambulatory referral to [facility] Occupational Therapy Outpatient Referral Routine Encounter for rehabilitation Ordered: 12/23/2017 documented as of this encounter Visit Diagnoses Diagnosis Encounter for rehabilitation- Primary documented in this encounter Care Teams Ceramic Tile Installation Helper Relationship Specialty Start Date End Date Unknown, Unknown, MD PCP - General 12/13/17 12/26/17 Ananth Lopez MD [address] [place] [phone] [email or web address] PCP - General Internal Medicine 12/27/17 documented as of this encounter Additional Source Comments The information contained in this document represents components of the legal health record. It is not the complete legal health record.[facility]
--- OUTSIDE RECORDS SUMMARY | 2025-03-30 07:20 | XMS_ITS | Clinical Summary ---
Author Organization [facility] Address [address] [place] [address] Care Team Providers Care Patternmaker Helper Name Role Phone Unknown Primary Care Provider [phone] Social History Tobacco Use Types Packs/Day [...] Vaccine (1 of 2) 2017 Influenza Vaccine 11/17/2024 COVID-19 Vaccine (1 - 2023- season) 2024 RSV Vaccine 50 years and old er and Patients (1 - 1-dose 75+ series) 2042 Insurance [facility] Care Teams Patternmaker Helper Relationship Specialty Start Date End Date Unknown Unknow Provider Address PCP - General 06/05/17
--- OUTSIDE RECORDS SUMMARY | 2025-03-30 07:21 | XMS_ITS | Clinical Summary ---
Author Organization [facility] Address [address] [place] [address] Care Team Providers Care Supply Chain Manager Name Role Phone Sunni Ramirez Primary Care Provider [phone] Allergies No known active allergies Medications senna [...] Pain 06/01/2017 Crushing injury of right hand Encounters Date Type Department Care Team Description 01/24/2025 11:30 AM EDT Telehealth [facility] [address] [place] [address] Chava Garcia MD Below-elbow amputation of right upper extremity, subsequent encounter (HCC) (Primary Dx); Amputation of right arm below elbow, subsequent encounter (HCC) from Last 3 Months Family History Relation Name Status Comments Father [...] Sign Reading Time Taken Comments Blood Pressure 158/97 10/30/2024 3:52 PM EDT Pulse 77 10/30/2024 3:52 PM EDT Temperature 36.8 C (98.2 F) 04/27/2022 2:34 PM EST Respiratory Rate 16 06/02/2017 4:06 PM EST Oxygen Saturation 98% 10/30/2024 3:52 PM EDT Inhaled Oxygen Concentration - - Weight 70.9 kg (156 lb 3.2 oz) 10/26/2022 3:21 P M EDT Height 167.6 cm (5' 6 ) 10/26/2022 3:21 PM EDT Body Mass Index 25.21 10/26/2022 3:21 PM EDT Plan of Treatment Upcoming Encounters Date Type Department Care Team (Late st Contact Info) Description 08/14/2025 12:00 PM EDT Telehealth [facility] [address] [place] [address] Chava Garcia MD [address] [place] [phone] 10/29/2025 1:45 PM EDT Follow-Up [facility] [address] [place] [address] Chava Garcia MD [address] [place] [address] Health Maintenance Due Date Last Done Comments [...] 2017 Alcohol/Substance Use Screening 04/19/2024 Influenza Vaccine (#1) 2024 COVID-19 Vaccine (2024- season) 2024 Insurance [employer] Care Teams Supply Chain Manager Relationship Specialty Start Date End Date Sunni Ramirez [address] [place], [place] [phone] PCP - General Internal Medicine 08/05/23
[2025-03-30 10:53] LABS: Alanine Aminotransferase 40 U/L (0-40); Albumin Level 4.4 g/dL (3.5-5.0); Alkaline Phosphatase 88 U/L (39-117); Anion Gap 10 (12-20); Aspartate Amino Transferase 31 U/L (5-37); Blood Urea Nitrogen 10 mg/dL (9-16); Calcium 9.0 mg/dL (8.4-10.2); Carbon Dioxide 26 mmol/L (22-29); Chloride 109 mmol/L (96-108); Cholesterol 177 mg/dL (<200); Estimated Glomerular Filt Rate > 60; HDL Cholesterol 40 mg/dL (>40); Potassium 3.9 mmol/L (3.3-5.1); Sodium 141 mmol/L (135-145); Total Protein 7.1 g/dL (6.5-8.0); Triglycerides 92 mg/dL (<150)
== END 2025-03-30 07:18 | disposition home or self-care (01) ==
LOC: HO.HMGCLDS 07:17
PROVIDERS: PCP Internal Medicine; Visit Provider Internal Medicine
DX: I10 Essential (primary) hypertension (principal)
CPT/HCPCS: 36415; 80053; 80061

== ENCOUNTER 2025-04-05 12:22 | Outpatient (AMB) | payer OTHER, SELFPAY ==
[2025-04-05 12:23] VITALS: BP 128/80; PULSE 78; RESP 16; O2SAT 96; BMI 28.3
--- NOTE | 2025-04-05 12:23 | A.OFFPC_ITS ---
Vital Signs 04/05/25 12:23 Height 5 ft 5 in Weight 170 lb BMI 28.3 BP 128/80 Blood Pressure Location Lt brachial Position Sitting Respiration 16 Pulse 78 Pulse Source Pulse Oximeter Pulse Oximetry (%) 96 Oxygen Delivery Method Room Air Intake Visit Reasons: 6m follow up, resched Intake Note: Pt is here today for 6 months follow up visit. Allergies No Known Allergies Allergy (Verified 04/05/25 12:24) Medication List - Last Reconciled 04/05/25 by Sunni Ramirez MD amlodipine-benazepril 5-20 mg 1 cap PO DAILY ciclopirox 8% (Ciclodan) 1 appl topical BEDTIME 4 weeks Tobacco use date assessed: 04/05/25 Dental Screening Dental Screen Date: 07/31/24 HPI 6m follow up, resched 2 HPI Details Patient presents for the follow-up on hypertension, controlled on current medications. [facility] Medical History Colon cancer screening Annual physical exam HTN (hypertension) Amputation of right hand Surgical History No pertinent past surgical history Family History Father No problems noted. Mother Lymphoma Social History Housing: House Alcohol intake: never Patient Tobacco Use Status: Never used Tobacco e-Cigarette/Vaping Use: Never Used service: No Current occupational status: employed Cognitive needs: No Hearing needs: No Vision needs: No Questionnaire Thrive Questionnaire Date Thrive assessed: 07/28/24 GEMA-7 AMB Questionnaire GEMA-7 Date GEMA - 7 assessed: 07/31/24 Source: Developed by Drs. Pelon Guevara, Jewels Garcia, Leonidas Ashford and colleagues, with an educational michelet from [employer]. Review of Systems Const All systems reviewed & are unremarkable except as noted in HPI and below ENT Reports no additional complaints Card Reports no additional complaints Resp Reports no additional complaints GI Reports no additional complaints Physical exam (Primary Care) Vital Signs: Last Vital Signs Pulse 78 04/05/25 12:23 Resp 16 04/05/25 12:23 BP 128/80 04/05/25 12:23 Pulse Ox 96 04/05/25 12:23 Oxygen Delivery Method Room Air 04/05/25 12:23 BMI result Body Mass Index 28.3 Tobacco/Smoking Status: Tobacco use Status Tobacco use date assessed 04/05/25 04/05/25 12:25 Patient Tobacco Use Status Never used Tobacco 04/05/25 12:25 e-Cigarette/Vaping Use Never Used 04/05/25 12:25 Thrive Assessment: Date of Thrive Assessment Date Thrive assessed 07/28/24 04/05/25 12:25 Const General: no acute distress HENMT Head: Yes normal to inspection Neck Neck: Yes supple Resp Effort & Inspection: normal respiratory effort Auscultation: clear to auscultation bilaterally Cardio Rhythm: regular rhythm Heart sounds: S1 normal heart sound present and S2 normal heart sound present Coding Level of Care Code Est Pt Level 3 (95194) Diagnoses HTN (hypertension) I10 Assessment & Plan Assessment & Plan (1) HTN (hypertension): Code(s): I10 - Essential (primary) hypertension Category: Medical Plan: Continue current medications. Follow-up in 6 months with a fasting labs before Orders: Orders Comprehensive [place]. Panel Fast 6 Months I10 - Essential (primary) hypertension, Z00.00 - Encounter for general adult medical examination without abnormal findings Complete Blood Count Auto Diff 6 Months I10 - Essential (primary) hypertension, Z00.00 - Encounter for general adult medical examination without abnormal findings Lipid Panel 6 Months I10 - Essential (primary) hypertension, Z00.00 - Encounter for general adult medical examination without abnormal findings TSH reflex Free T4 6 Months I10 - Essential (primary) hypertension, Z00.00 - Encounter for general adult medical examination without abnormal findings UA w Microscopic 6 Months I10 - Essential (primary) hypertension, Z00.00 - Encounter for general adult medical examination without abnormal findings PSA,Total (Free>4and<10) 6 Months I10 - Essential (primary) hypertension, Z00.00 - Encounter for general adult medical examination without abnormal findings Medications: Refilled amlodipine-benazepril 5-20 mg 1 cap PO DAILY 90 caps 3RF
--- OUTSIDE RECORDS SUMMARY | 2025-04-05 16:11 | XMS_ITS | Clinical Summary ---
Author Organization [facility] Address [address] [place] [address] Care Team Providers Care Grazing Examiner Name Role Phone Unknown Primary Care Provider [...] Influenza Vaccine 11/17/2024 COVID-19 Vaccine (1 - 2024- season) 2024 RSV Vaccine 50 years and old er and Patients (1 - 1-dose 75+ series) 2042 Insurance [facility] Care Teams Grazing Examiner Relationship Specialty Start Date End Date Unknown Unknow Provider Address PCP - General 06/05/17
--- OUTSIDE RECORDS SUMMARY | 2025-04-05 16:11 | XMS_ITS | Clinical Summary ---
Author Organization [facility] Address [address] [place] [address] Care Team Providers Care Line Haul Driver Name Role Phone Sunni Ramirez Primary Care Provider [phone] Allergies No known active allergies Medications senna [...] Team Description 01/24/2025 11:30 AM EDT Telehealth [facility] [address] [place] [address] Chava Garcia MD Below-elbow amputation of right [...] Info) Description 08/14/2025 12:00 PM EDT Telehealth [facility] [address] [place] [address] Chava Garcia MD [address] [place] [address] 10/29/2025 1:45 PM EDT Follow-Up [facility] [address] [place] [address] Chava Garcia MD [address] [place] [address] Health Maintenance Due Date Last Done Comments Cologuard 1967 Colon Cancer Screening 1967 Colonoscopy 1967 FOBT / Fit Test 1967 HIV Screening 1967 Hepatitis C Screening 1967 Sigmoidoscopy 1967 Hepatitis B Vaccines (1 of 3 - 19+ 3-dose series) 04/1985 DTaP,Tdap,and Td Vaccines (1 - Tdap) 1989 Pneumococcal Vaccine: 50+ Years (1 of 1 - PCV) 017 Zoster Vaccines (1 of 2) 2017 Alcohol/Substance Use Screening 04/19/2024 Depression Screening and Follow-Up 04/19/2024 Social Drivers of Health Annual Screening 04/19/2024 Influenza Vaccine (#1) 2024 COVID-19 Vaccine (2024- season) 2024 Insurance [employer] Care Teams Line Haul Driver Relationship Specialty Start Date End Date Sunni Ramirez [address] [place] [address] PCP - General Internal Medicine 08/05/23
--- OUTSIDE RECORDS SUMMARY | 2025-04-05 16:11 | XMS_ITS | Encounter Summary ---
Author Organization [facility] Address [address] [place] [phone] Phone Care Team Providers Care Residential Finish Carpenter Name Role Phone Unknown, Unknown Primary Care Provider Ananth Davenport MD Primary Care Provider Reason for Referral * Occupational Therapy (Routine) - Closed Specialty Diagnoses / Procedures Referred By Tj alberts Referred To Contact Occupational Therapy Diagnoses Encounter for rehabilitation System, Provider Not In, PhD [phone] [place] [address] Phone: tel: Referral ID Status Reason Start Date Expiration Date Visits Re quested Visits Authorized [id number] Closed 12/23/2017 04/18/2018 17 17 Encounter Details Date Type Department Care Team (Latest Contact Info) Description 12/23/2017 Transcribe Orders [facility] [address] [place] [address] Chava Garcia MD [address] [place] [address] Encounter for rehabilitation (Primary Dx) Social History [...] Diagnoses Orde r Schedule Ambulatory referral to [facility] Occupational Therapy Outpatient Referral Routine Encounter for rehabilitation Ordered: 12/23/2017 documented as of this encounter Visit Diagnoses Diagnosis Encounter for rehabilitation- Primary documented in this encounter Care Teams Residential Finish Carpenter Relationship Specialty Start Date End Date Unknown, Unknown, MD PCP - General 12/13/17 12/26/17 Ananth Lopez MD [address] [place] [phone] [email or web address] PCP - General Internal Medicine 12/27/17 documented as of this encounter Additional Source Comments The information contained in this document represents components of the legal health record. It is not the complete legal health record.[facility]
--- OUTSIDE RECORDS SUMMARY | 2025-04-05 16:11 | XMS_ITS | Clinical Summary ---
Author Organization [facility] Address [address] [facility] [address] [place] [address] Phone Care Team Providers Care Starter Cup Powder Mixer Name Role Phone Ananth Lopez MD Primary [...] on file Insurance [employer] Care Teams Starter Cup Powder Mixer Relationship Specialty Start Date End Date Ananth Lopez MD [address] [place] [phone] [email or web address] PCP - General Internal Medicine 12/27/17 Additional Source Comments The information contained in this document represents components of the legal health record. It is not the complete legal health record.[facility]
== END 2025-04-05 13:31 | disposition home or self-care (01) ==
LOC: HO.HMCC 12:22
PROVIDERS: PCP Internal Medicine; Visit Provider Internal Medicine
DX: I10 Essential (primary) hypertension (principal)

== ENCOUNTER → 2025-04-05 12:22 | Outpatient (BNVA) | payer OTHER, SELFPAY | PROVIDERS: PCP Internal Medicine; Visit Provider Internal Medicine | DX: I10 Essential (primary) hypertension (principal); Z79.899 Other long term (current) drug therapy | CPT/HCPCS: 99212 ==